=== PATIENT | male | born 1985 | race Caucasian/White ===

== ENCOUNTER → 2018-12-11 | Emergency (ER) | payer OTHER ==
[~2018-12-11] VITALS: Ht 172.7 cm; Wt 83.9 kg
[~2018-12-11] MED LIST: AMOX-CLAV 875-1 EACH; CLEOCIN HCL300 MG PO; INTESTINEX680 M1 PO; KETO10TA2 PO; MUPIROCIN1 G1; PROTONIX40 MG PO
== END | disposition home or self-care (01) ==
LOC: ER 13:47
DX: L03.211 Cellulitis of face (principal)

== ENCOUNTER 2022-02-28 09:29 | Outpatient (CLI) | payer OTHER | END 2022-02-28 09:32 | disposition home or self-care (01) | LOC: LAB 09:29 | PROVIDERS: ATTEND Obstetrics & Gynecology | DX: Z20.828 Contact with and (suspected) exposure to other viral communicable diseases (principal); Z20.818 Contact with and (suspected) exposure to other bacterial communicable diseases ==

== ENCOUNTER 2023-07-20 17:27 | Emergency (ER) | payer OTHER ==
[~2023-07-20] VITALS: Ht 172.7 cm; Wt 77.1 kg
[2023-07-20] MEDS ORDERED: ESCITALOPRAM OX10 MG PO (17:38)
[2023-07-20] MEDS ORDERED: ZOLPIDEM TARTRA10 MG PO (17:38)
[2023-07-20 19:11] LABS: HEMATOCRIT 40.6 % (39.0-48.0); HEMOGLOBIN 13.6 g/dL (13-16.00); MEAN CORPUSCULAR HEMOGLOBIN 27.7 pg (27.00-32.0); MEAN CORPUSCULAR HGB CONC 33.4 g/dl (32.0-36.0); PLATELET COUNT 180 K/uL (150-450); RED BLOOD COUNT 4.88 M/uL (4.00-6.00); RED CELL DISTRIBUTION WIDTH 13.1 % (11.5-14.5)
== END 2023-07-20 19:49 | disposition home or self-care (01) ==
LOC: ER 17:27
PROVIDERS: General Practice
DX: B34.9 Viral infection, unspecified (principal); Z20.822 Contact with and (suspected) exposure to COVID-19